=== PATIENT | female | born 1995 | race Caucasian/White ===

== ENCOUNTER 2017-12-20 23:36 | Emergency (ER) | payer MEDICAID ==
[~2017-12-20] VITALS: Ht 160 cm; Wt 62.7 kg
[2017-12-21 01:10] LABS: BASOPHILS % 0.8 % (0.0-2.0); EOSINOPHILS % 5.4 % (0.0-5.0); HEMATOCRIT. 38.3 % (36.0-48.0); HEMOGLOBIN. 12.9 g/dL (12.0-16.0); LYMPHOCYTES % 25.6 % (20.0-50.0); MEAN CORPUSCULAR HEMOGLOBIN 28.6 pg (28.0-32.0); MONOCYTES % 7.4 % (2.0-8.0); NEUTROPHILS % 60.8 % (40.0-76.0); PLATELET 209 x1000/uL (130-400); RED BLOOD CELL COUNT 4.51 mill/uL (4.2-5.4); RED CELL DISTRIBUTION WIDTH 13.3 % (11.6-14.6)
[2017-12-21 01:15] LABS: CLARITY URINE CLEAR (CLEAR); COLOR URINE YELLOW (YELLOW); KETONES URINE NEGATIVE (NEGATIVE); LEUKOCYTE ESTERASE URINE TRACE (NEGATIVE); NITRITE URINE NEGATIVE (NEGATIVE); OCCULT BLOOD URINE 3+ (NEGATIVE); PROTEIN URINE NEGATIVE (NEGATIVE); SPECIFIC GRAVITY URINE 1.023 (1.005-1.030); UROBILINOGEN URINE 0.2 E.U./dL (0.2-1.0)
[2017-12-21 01:18] LABS: CHLORIDE 109 mEq/L (98-107)
[2017-12-21 01:28] LABS: B-HCG QUANTITATIVE 289 mIU/mL (<3)
[2017-12-21 04:00] VITALS: BP 118/62
== END 2017-12-21 04:10 | disposition home or self-care (01) ==
LOC: ER 23:36
DX: O20.0 Threatened abortion (principal); Z3A.01 Less than 8 weeks gestation of pregnancy
CPT/HCPCS: 36415; 76830; 76856; 80048; 81001; 84702; 85025; 86850; 86900; 99285

== ENCOUNTER 2020-01-18 09:39 | Observation (INO) | payer MEDICAID ==
[~2020-01-18] VITALS: Ht 160 cm; Wt 88.5 kg
[~2020-01-18 09:39] MED LIST: PNV1TABL76 PO
[2020-01-18] MEDS ORDERED: PREN-55 MT (10:22)
[2020-01-18] MEDS ORDERED: PREN-52 MT (10:22)
== END 2020-01-18 11:00 | disposition home or self-care (01) ==
LOC: 8 EST LDRP 09:39
PROVIDERS: ADMIT Obstetrics & Gynecology; ATTEND Obstetrics & Gynecology
DX: O62.9 Abnormality of forces of labor, unspecified (principal); Z3A.39 39 weeks gestation of pregnancy
CPT/HCPCS: 99281; G0378

== ENCOUNTER 2020-01-28 09:52 | Emergency (ER) | payer MEDICAID ==
[~2020-01-28] VITALS: Ht 160 cm; Wt 86.0 kg
[2020-01-28 13:21] VITALS: BP 120/85
== END 2020-01-28 13:23 | disposition home or self-care (01) ==
LOC: ER 12:32
DX: T19.2XXA Foreign body in vulva and vagina, initial encounter (principal); Z79.899 Other long term (current) drug therapy; X58.XXXA Exposure to other specified factors, initial encounter; Y93.89 Activity, other specified; Y92.89 Other specified places as the place of occurrence of the external cause; Y99.8 Other external cause status
CPT/HCPCS: 99283